=== PATIENT | male | born 1990 | race Caucasian/White ===

== ENCOUNTER 2024-11-28 22:44 | Emergency (ER) | payer OTHER ==
[~2024-11-28] VITALS: Ht 180.3 cm; Wt 97.5 kg
[2024-11-28 22:48] VITALS: TEMP 98.5
[2024-11-28] MEDS ORDERED: IBUPROFEN 400 MG TABLET ONE (23:13)
[2024-11-28] MEDS: IBUPROFEN 400 MG TABLET PO ONE (23:16)
[2024-11-28 23:21] VITALS: BP 115/78; O2SAT 98
== END 2024-11-29 00:40 | disposition home or self-care (01) ==
LOC: ER 22:45
DX: S39.012A Strain of muscle, fascia and tendon of lower back, initial encounter (principal); Z60.2 Problems related to living alone; W10.9XXA Fall (on) (from) unspecified stairs and steps, initial encounter; Y93.89 Activity, other specified; Y92.89 Other specified places as the place of occurrence of the external cause; Y99.8 Other external cause status
CPT/HCPCS: 72131-TC